=== PATIENT | female | born 1970 | race Caucasian/White ===

== ENCOUNTER 2022-10-15 03:29 | Emergency (ER) | payer BC ==
[~2022-10-15] VITALS: Ht 160 cm; Wt 87.0 kg
[2022-10-15 03:44] VITALS: TEMP 98.7; O2SAT 98
[2022-10-15] MEDS ORDERED: TRAM50TA3 MT (10:54)
[2022-10-15] MEDS ORDERED: IBUP-2029 MT (10:54)
[2022-10-15] MEDS ORDERED: GABA-532 MT (10:54)
[2022-10-15 11:15] VITALS: BP 212/95; PULSE 98; RESP 18
[2022-10-15] MEDS ORDERED: KETOROLAC 60MG/2ML VIAL IM ONE (11:15)
== END 2022-10-15 11:41 | disposition home or self-care (01) ==
LOC: ER 03:29
DX: M25.551 Pain in right hip (principal); I10 Essential (primary) hypertension
CPT/HCPCS: 81025; 73502; 96372; 99283; J1885; Z7610